=== PATIENT | female | born 1940 | race Caucasian/White ===

== ENCOUNTER 2025-05-02 17:26 | Emergency (ER) | payer MEDICARE, BC ==
[~2025-05-02] VITALS: Ht 157.5 cm; Wt 64.9 kg
[2025-05-02] MEDS ORDERED: HYDROCHLOROTHIAZIDE 25 MG TABLET ONE (17:57)
[2025-05-02] MEDS: HYDROCHLOROTHIAZIDE 25 MG TABLET PO ONE (18:01)
[2025-05-02 21:01] VITALS: BP 163/73; TEMP 98.3; O2SAT 97
== END 2025-05-02 21:01 | disposition home health service (06) ==
LOC: ER 17:32
DX: I10 Essential (primary) hypertension (principal); G35.D Multiple sclerosis, unspecified; Z88.0 Allergy status to penicillin